=== PATIENT | male | born 1985 | race Caucasian/White ===

== ENCOUNTER 2025-02-02 20:23 | Emergency (ER) | payer OTHER ==
[~2025-02-02] VITALS: Ht 172.7 cm; Wt 215.9 kg
[~2025-02-02 20:23] MED LIST: CLON-595 PO; HYDR25TA PO; LAMO-24 PO; LISI20TA24 PO; LURA40TA2 PO; PANT-31 PO
[2025-02-02 20:32] VITALS: BP 138/81; PULSE 86; RESP 18; TEMP 98.9; O2SAT 100
[2025-02-02] MEDS ORDERED: BISACODYL 10 MG RECTAL RECTAL SUPPOSITORY PR PRN (22:45)
[2025-02-02] MEDS ORDERED: ACETAMINOPHEN 325 MG TABLET PO PRN (22:45)
[2025-02-02] MEDS ORDERED: SODIUM CHLORIDE 0.9% IV ONE (22:45)
[2025-02-02] MEDS ORDERED: OxyCODONE HCL/ACETAMINOPHEN 5-325 MG TABLET PO PRN (22:45)
[2025-02-02] MEDS ORDERED: ONDANSETRON HCL 4 MG/2 ML VIAL IVP PRN (22:45)
[2025-02-02] MEDS ORDERED: ALBUTEROL SULFATE 2.5 MG/0.5 ML NEB SOLUTION NEB PRN (22:45)
[2025-02-02] MEDS ORDERED: 0.9% SODIUM CHLORIDE 10 ML SYRINGE IVP PRN (22:45)
[2025-02-02] MEDS ORDERED: VANCOMYCIN 1GM/WATER(PEG/NADA) 200 ML IV ONE (22:45)
[2025-02-02] MEDS ORDERED: DEXTROSE 50%-WATER 25 GM/50 ML SYRINGE IVP PRN (23:15)
[2025-02-02] MEDS ORDERED: INSULIN LISPRO 100 UNITS/ML SQ PRN (23:15)
[2025-02-03] MEDS ORDERED: HEPARIN SODIUM,PORCINE 5,000 UNITS/ML VIAL SQ SCH
[2025-02-03] MEDS ORDERED: DOCUSATE SODIUM 100 MG CAPSULE PO SCH (09:00)
[2025-02-03] MEDS ORDERED: FAMOTIDINE 20 MG TABLET PO SCH (09:00)
== END 2025-02-02 23:46 | disposition left against medical advice (07) ==
LOC: EMS 20:23 → EDH 22:43 → UNDOADMIN 22:43 → EMS 23:46 → UNDODISIN 02-03 07:21
DX: L03.90 Cellulitis, unspecified (principal); Z68.45 Body mass index [BMI] 70 or greater, adult; E11.9 Type 2 diabetes mellitus without complications; E66.01 Morbid (severe) obesity due to excess calories; F99 Mental disorder, not otherwise specified; I10 Essential (primary) hypertension
CPT/HCPCS: 99283; 71045; 82962; 93005; J3490; 99285; G0378